=== PATIENT | female | born 1960 | race Caucasian/White ===

== ENCOUNTER 2016-10-10 13:19 | Emergency (ER) | payer BC ==
[2016-10-10 14:54] VITALS: BP 156/88
--- NOTE | 2016-10-10 15:55 | UC ---
Throat Pain/Nasal Brien HPI - HPI Summary HPI Summary: complain to fnasal congestion and cough thtvstarted five days ago productive cough bloody nose today sinus pressure and pain right ear pain sore throat from coughing 2 days ago started feeling achiness throughout body denies fever and chills denies N/v/d - History of Current Complaint Chief Complaint: UCRespiratory Stated Complaint: CONGESTION Time Seen by Provider: 10/10/16 15:43 Hx Obtained From: Patient - Allergies/Home Medications Allergies/Adverse Reactions: Allergies Allergy/AdvReac Type Severity Reaction Status Date / Time Tetracycline Allergy Diarrhea Verified 10/10/16 14:55 PMH/Surg Hx/FS Hx/Imm Hx Previously Healthy: Yes Endocrine History Of: Reports: Thyroid Disease Denies: Diabetes Cardiovascular History Of: Reports: Hypertension Denies: Cardiac Disorders Respiratory History Of: Denies: COPD, Asthma GI/ History Of: Denies: Ulcer Cancer History Of: Denies: Breast Cancer - Surgical History Surgical History: None - Family History Known Family History: Negative: Cardiac Disease, Hypertension, Diabetes - Social History Occupation: Employed Full-time Lives: With Family Alcohol Use: None Substance Use Type: None Smoking Status (MU): Never Smoked Tobacco Review of Systems Constitutional: Negative Skin: Negative Eyes: Negative ENT: Nasal Discharge Respiratory: Cough Gastrointestinal: Negative Genitourinary: Negative Motor: Negative Neurovascular: Negative Musculoskeletal: Negative Neurological: Negative Psychological: Negative All Other Systems Reviewed And Are Negative: Yes Physical Exam Triage Information Reviewed: Yes Appearance: No Pain Distress, Well-Nourished Vital Signs: Initial Vital Signs Temp 97.7 F 10/10/16 14:51 Pulse 78 10/10/16 14:51 Resp 18 10/10/16 14:51 BP 156/88 10/10/16 14:51 Pulse Ox 100 10/10/16 14:51 Vital Signs Reviewed: Yes Eyes: Positive: Conjunctiva Clear ENT: Positive: Pharyngeal erythema, Nasal congestion, Nasal drainage, TMs normal , Other: - maxillary and frontal sinus tenderness Neck: Positive: No Lymphadenopathy Respiratory: Positive: Lungs clear, Normal breath sounds, No respiratory distress, No accessory muscle use Cardiovascular: Positive: RRR, No Murmur, Pulses Normal Abdomen Description: Positive: Nontender, Soft Bowel Sounds: Positive: Present Musculoskeletal: Positive: No Edema Neurological Exam: Normal Psychological Exam: Normal Skin Exam: Normal Throat Pain/Nasal Course/Dx - Differential Dx/Diagnosis Differential Diagnosis/HQI/PQRI: Sinusitis, URI, Other - bronchitis Provider Diagnoses: bronchitis, sinusitis Discharge - Discharge Plan Condition: Stable Disposition: HOME Prescriptions: Albuterol HFA INHALER* [Ventolin HFA Inhaler*] 2 puff INH Q4H PRN #1 mdi PRN Reason: Wheezing Amoxicillin/Clavulanate TAB* [Augmentin TAB 875*] 875 mg PO BID #20 tab Patient Education Materials: Sinusitis (ED), Bronchospasm (ED) Referrals: Marisela Oconnor NP [Primary Care Provider] - Additional Instructions: Please take antibiotic as directed Use your albuterol inhaler every 4-6 hours when needed for wheezing, shortness of breath or uncontrolled coughing. Increase fluids and rest Take acetaminophen or ibuprofen for fever or pain Please review your discharge instructions. If your symptoms do not improve please call your primary care provider or return to urgent care. Your blood pressure is elevated. Please contact your primary care provider within 1 day -4 weeks for further evaluation.
== END 2016-10-10 16:15 | disposition home or self-care (01) ==
LOC: UCEAST 13:19
DX: J40 Bronchitis, not specified as acute or chronic (principal); J32.9 Chronic sinusitis, unspecified; Z88.1 Allergy status to other antibiotic agents; E07.9 Disorder of thyroid, unspecified; I10 Essential (primary) hypertension
CPT/HCPCS: 99212; G0463

== ENCOUNTER 2020-09-12 22:09 | Observation (INO) ==
[2020-09-12] MEDS ORDERED: Ondansetron 4 mg VIAL 2 MG/ML 2 ml VIAL IV PRN (23:02)
[2020-09-12] MEDS ORDERED: Lactated Ringers 1000 ml BAG 1,000 ML IV SCH (23:45)
[2020-09-13] MEDS ORDERED: Cefepime 2 GM in Dextrose 2 GM/50 ML BAG IV SCH
[2020-09-13] MEDS ORDERED: metroNIDAZOLE IV 500 MG/100ML 500 MG/100 ML BAG IVPB SCH
[2020-09-13] MEDS: metroNIDAZOLE IV 500 MG/100ML 100 ML IVPB SCH ×2 (01:07→09:03)
[2020-09-13] MEDS: HYDROmorphone 1 MG/1 ML SYRINGE IV SLOW PU PRN ×2 (06:08→09:19)
[2020-09-13] MEDS ORDERED: Bupivacaine 0.25% EPI 200,000 30 ML SDV ONE (10:26)
[2020-09-13] MEDS ORDERED: Ondansetron 4 mg VIAL 2 MG/ML 2 ml VIAL ONE (10:31)
[2020-09-13] MEDS ORDERED: Lidocaine 2% PF 5 ML VIAL ONE (10:31)
[2020-09-13] MEDS ORDERED: Propofol 10 MG/ML 20 ML BTL ONE (10:31)
[2020-09-13] MEDS ORDERED: Rocuronium 50 mg VIAL 10 mg/ml 5 ml VIAL (50 mg) ONE (10:37)
[2020-09-13] MEDS ORDERED: fentaNYL 250 mcg/5 ml 50 MCG/ML 5 ml VIAL (250 MCG) ONE (10:37)
[2020-09-13] MEDS ORDERED: Midazolam 2 mg/2 ml VIAL 1 mg/ml 2 ml VIAL (2 mg) ONE (10:37)
[2020-09-13] MEDS ORDERED: Dexamethasone IV 4 MG/ML VIAL 1 ml VIAL IV SLOW PU ONE (11:17)
[2020-09-13] MEDS ORDERED: Famotidine IV 10 MG/ML 2 ml VIAL (20 mg) IV SLOW PU ONE (11:17)
[2020-09-13] MEDS ORDERED: Dexamethasone IV 4 MG/ML VIAL 1 ml VIAL ONE ×2 (11:20→11:58)
[2020-09-13] MEDS ORDERED: Famotidine IV 10 MG/ML 2 ml VIAL (20 mg) ONE (11:20)
[2020-09-13] MEDS ORDERED: Scopolamine PATCH Remove NOTE PATCH OFF SCH (12:00)
[2020-09-13] MEDS ORDERED: Sugammadex 500 MG/5 ML 5 ml VIAL IV PUSH ONE (12:10)
[2020-09-13] MEDS ORDERED: Naloxone 0.4 mg VIAL 0.4 mg/ml 1 ml VIAL IV PRN ×2 (12:11→16:20)
[2020-09-13] MEDS ORDERED: fentaNYL 100 mcg/2 ml 50 MCG/ML VIAL IV PRN ×2 (12:11→16:20)
[2020-09-13] MEDS ORDERED: oxyCODONE/Acetamin 5/325 mg TAB PO PRN ×2 (12:11→16:20)
[2020-09-13] MEDS ORDERED: Prochlorperazine 5 mg/ml 2 ml VIAL (10 mg) IV PRN ×2 (12:11→16:20)
[2020-09-13] MEDS ORDERED: HYDROcodone/ACETAMIN 5/325 mg TAB PO PRN ×2 (12:11→16:20)
[2020-09-13] MEDS ORDERED: oxyCODONE/Acetamin 5/325 mg TAB ONE (13:58)
[2020-09-13 14:02] VITALS: BP 121/75
== END 2020-09-13 14:24 | disposition home or self-care (01) ==
LOC: ED 22:09 → SSU 22:30 → INTOOBSV 23:24
PROVIDERS: ADMIT Surgery Surgical Critical Care; ATTEND Surgery

== ENCOUNTER 2020-12-01 06:08 | Observation (INO) ==
[~2020-12-01 06:08] MED LIST: Buffered Lidocaine 1% SYRIN 1 ml INTRADERM ONE; Famotidine IV 10 MG/ML 2 ml VIAL (20 mg) IV ONE; Lactated Ringers 1000 ml BAG 1,000 ML IV SCH
[2020-12-01] MEDS ORDERED: ceFAZolin 2 GM PREMIX 2 GM/50 ML BAG ONE (06:43)
[2020-12-01] MEDS ORDERED: Famotidine IV 10 MG/ML 2 ml VIAL (20 mg) ONE (06:43)
[2020-12-01] MEDS ORDERED: Lidocaine 1% MPF 5 ML VIAL ONE (06:56)
[2020-12-01] MEDS ORDERED: ROPIVACAINE 5 MG/ML 30 ML BTL (0.5%) ONE (06:56)
[2020-12-01] MEDS ORDERED: Propofol 10 mg/ml 100 ML BTL 100 ML ONE (07:17)
[2020-12-01] MEDS ORDERED: Midazolam 2 mg/2 ml VIAL 1 mg/ml 2 ml VIAL (2 mg) ONE (07:41)
[2020-12-01] MEDS ORDERED: DiMENhydriNATE IV 50 mg/ml 1 ml VIAL IV PUSH PRN (08:38)
[2020-12-01] MEDS ORDERED: Naloxone 0.4 mg VIAL 0.4 mg/ml 1 ml VIAL IV PRN (08:38)
[2020-12-01] MEDS ORDERED: HYDROmorphone 1 MG/1 ML SYRINGE IV PRN (08:38)
[2020-12-01] MEDS ORDERED: Ropivacaine 5 MG/ML 20 ML VIAL 0.5% (100 MG) ONE (08:41)
[2020-12-01] MEDS ORDERED: diPHENhydraMINE IV 50 MG/ML 1 ml VIAL (BENADRYL) IV PRN (10:34)
[2020-12-01] MEDS ORDERED: Ondansetron ODT 4 mg TAB 4 MG TAB PO PRN (10:34)
[2020-12-01] MEDS ORDERED: Ondansetron 4 mg VIAL 2 MG/ML 2 ml VIAL IV PRN (10:34)
[2020-12-01] MEDS ORDERED: diPHENhydraMINE 25 mg TAB PO PRN (10:34)
[2020-12-01] MEDS ORDERED: Lactulose 30 ml UDC PO PRN (10:34)
[2020-12-01] MEDS ORDERED: Magnesium Hydroxide LIQ 30 ML UDC PO PRN (10:34)
[2020-12-01] MEDS ORDERED: Lactated Ringers 1000 ml BAG 1,000 ML IV SCH (11:00)
[2020-12-01] MEDS: Morphine 2 MG/ML SYRINGE IV PRN ×2 (13:31→17:22)
[2020-12-01] MEDS ORDERED: Metoclopramide 5 MG/ML VIAL (10 mg) IV PRN (15:26)
[2020-12-01] MEDS: ceFAZolin 1 GM ADVAN 1 GM in NS 0.9% 50 ML 50 ML IVPB SCH ×2 (16:00→23:33)
[2020-12-01] MEDS ORDERED: Potassium Chlor 10 meq TAB PO SCH (17:00)
[2020-12-01] MEDS: Magnesium Hydroxide LIQ 30 ML UDC PO SCH (20:48)
[2020-12-02] MEDS: Morphine 2 MG/ML SYRINGE IV PRN (00:44)
[2020-12-02 07:01] LABS: Hematocrit 35 % (35-47); Hemoglobin 11.9 g/dL (12.0-16.0); Mean Platelet Volume 7.4 fL (7.4-10.4); Platelet Count 201 10^3/uL (150-450)
[2020-12-02 07:18] LABS: Calcium 8.5 mg/dL (8.6-10.3); EGFR Non-African American 71.1 (>60); Potassium 3.8 mmol/L (3.5-5.0)
[2020-12-02] MEDS: ceFAZolin 1 GM ADVAN 1 GM in NS 0.9% 50 ML 50 ML IVPB SCH (07:45)
[2020-12-02] MEDS: Magnesium Hydroxide LIQ 30 ML UDC PO SCH (07:51)
[2020-12-02] MEDS ORDERED: Vitamin THERAPEUTIC TAB PO SCH (09:00)
[2020-12-02 11:15] VITALS: BP 125/55
== END 2020-12-02 14:15 | disposition home or self-care (01) ==
LOC: AA 06:08 → INTOOBSV 06:08 → SSU 11:23
PROVIDERS: ADMIT Orthopaedic Surgery Adult Reconstructive Orthopaedic Surgery; ATTEND Orthopaedic Surgery Adult Reconstructive Orthopaedic Surgery